=== PATIENT | male | born 1955 | race African-American/Black ===

== ENCOUNTER 2023-12-19 14:19 | Emergency (ER) | payer MEDICARE, MEDICAID ==
[~2023-12-19] VITALS: Ht 172.7 cm; Wt 100.0 kg
[2023-12-19 14:23] VITALS: O2SAT 100
[2023-12-19] MEDS ORDERED: DOXY100C5 MT (16:34)
[2023-12-19 17:10] VITALS: BP 139/83; PULSE 63; RESP 16; TEMP 98.5
== END 2023-12-19 17:16 | disposition home or self-care (01) ==
LOC: ER 14:19
DX: J18.9 Pneumonia, unspecified organism (principal); I10 Essential (primary) hypertension
CPT/HCPCS: 71045; 99283